=== PATIENT | male | born 1985 | race American Indian/Alaskan Native ===

== ENCOUNTER 2020-08-31 18:17 | Emergency (ER) | payer SELFPAY ==
[2020-08-31 18:30] VITALS: BP 157/108
--- NOTE | 2020-08-31 19:02 | Emergency Department Report ---
Chief Complaint: Pain General Stated Complaint: SEIZURE/TUMOR IN GROWIN/PAIN - HPI History of Present Illness: The patient was evaluated in the emergency department for symptoms described in the history of present illness. He/she was evaluated in the context of the global COVID-19 pandemic, which necessitated consideration that the patient might be at risk for infection with the virus that causes COVID-19. Institutional protocols and algorithms that pertain to the evaluation of patients at risk for COVID-19 are in a state of rapid change based on information released by regulatory bodies including the CDC and federal and state organizations. These policies and algorithms were followed during the patient's care in the emergency department. Please note that these policies, procedures and recommendations changed on a rapid basis. 35-year-old homeless male presents to the emergency room stating that he had a seizure 4 days ago and complains of groin pain that he has had since he was a child. - ROS Review of Systems: Gen: alert oriented NAD Cardic: regular rate and rhythm no murmurs appreciated Resp: Clear to auscultation bilateral no wheezing no rales or rhonchi. Abdomen: Soft nontender nondistended normal bowel sounds. - Exam Vital Signs: Vital Signs 08/31/20 18:26 Temperature 97.8 F Pulse Rate 106 H Respiratory 18 Rate Blood Pressure 157/108 O2 Sat by Pulse 98 Oximetry MSE screening note: Focused history and physical exam performed. Due to findings the following was ordered: Patient has been here for several hours trying to get to the back to his girlfriend. Discussed with patient that he can follow-up with the community clinic. ED Disposition for MSE Disposition: MED SCREENING EXAM-LEFT Is pt being admited?: No Does the pt Need Aspirin: No Condition: Stable Additional Instructions: follow up with a community provider Referrals: [facility] [Provider Group] - 3-5 Days
== END 2020-08-31 19:00 | disposition left against medical advice (07) ==
LOC: ED 18:17
DX: R56.9 Unspecified convulsions (principal); Z53.21 Procedure and treatment not carried out due to patient leaving prior to being seen by health care provider